=== PATIENT | female | born 1980 | race Caucasian/White ===

== ENCOUNTER 2017-08-08 08:28 | Outpatient (CLI) | payer MEDICAID ==
[2017-08-08 09:25] LABS: ADD MAN DIFF? NO
[2017-08-08 09:35] LABS: BASOPHILS % 0.2 % (0.0-2.0); EOSINOPHILS % 0.3 % (0.0-7.0); HEMATOCRIT 38.1 % (37.0-47.0); HEMOGLOBIN 12.6 g/dl (12.0-16.0); LYMPHOCYTES # 0.8 10^3/ul (0.8-2.9); LYMPHOCYTES % 6.9 % (15.0-51.0); MEAN CORPUSCULAR HEMOGLOBIN 29.6 pg (29.0-33.0); MEAN CORPUSCULAR HGB CONC 33.1 g/dl (32.0-37.0); MEAN CORPUSCULAR VOLUME 89.6 fl (82.0-101.0); MEAN PLATELET VOLUME 10.4 fl (7.4-10.4); MONOCYTE # 0.3 10^3/ul (0.3-0.9); MONOCYTES % 2.7 % (0.0-11.0); NEUTROPHIL # 10.3 10^3/ul (1.6-7.5); NEUTROPHILS % 89.4 % (39.0-77.0); PLATELET COUNT 236 10^3/UL (140-415); RED BLOOD COUNT 4.25 10^6/ul (4.20-5.40)
[2017-08-08 09:35] LABS: WHITE BLOOD COUNT 11.6 10^3/ul (4.8-10.8)
[2017-08-08 09:42] LABS: ADD UMIC YES; UR ASCORBIC ACID NEGATIVE (NEGATIVE); UR BACTERIA FEW /HPF (NONE SEEN); UR BILIRUBIN (Dip) NEGATIVE (NEGATIVE); UR BLOOD (Dip) NEGATIVE (NEGATIVE); UR CLARITY SLIGHTLY CLOUDY (CLEAR); UR COLOR YELLOW (YELLOW); UR GLUCOSE (Dip) NEGATIVE (NEGATIVE); UR KETONES (Dip) NEGATIVE (NEGATIVE); UR LEUKOCYTE ESTERASE (Dip) TRACE Leu/ul (NEGATIVE); UR MUCUS FEW /HPF (NONE SEEN); UR NITRITE (Dip) NEGATIVE (NEGATIVE); UR RBC 1 /HPF (0-5); UR SPECIFIC GRAVITY (Dip) 1.024 (1.003-1.030); UR SQUAMOUS EPITHELIAL CELL FEW /HPF (FEW); UR TOTAL PROTEIN (Dip) 2+ mg/dl (NEGATIVE); UR UROBILINOGEN (Dip) NEGATIVE (NEGATIVE); UR WBC 3 /HPF (0-5)
[2017-08-08 09:58] LABS: ALANINE AMINOTRANSFERASE 23 IU/L (13-69); ALBUMIN 3.6 g/dl (3.3-4.9); ALBUMIN/GLOBULIN RATIO 1.12; ALKALINE PHOSPHATASE 140 IU/L (42-121); AMYLASE 139 U/L (11-123); ANION GAP 11 (8-16); ASPARTATE AMINO TRANSFERASE 17 IU/L (15-46); BILIRUBIN,INDIRECT 0.2 mg/dl (0-1.1); BILIRUBIN,TOTAL 0.2 mg/dl (0.2-1.3); BLOOD UREA NITROGEN 10 mg/dl (7-20); CALCIUM 8.5 mg/dl (8.4-10.2); CARBON DIOXIDE 26 mmol/L (21-31); CHLORIDE 105 mmol/L (97-110); CREATININE 0.57 mg/dl (0.44-1.00); GLUCOSE 91 mg/dl (70-220); LIPASE 210 U/L (23-300); POTASSIUM 4.3 mmol/L (3.5-5.1); TOTAL PROTEIN 6.8 g/dl (6.1-8.1)
[2017-08-08 10:12] LABS: SODIUM 138 mmol/L (135-144)
== END 2017-08-08 10:50 | disposition home or self-care (01) ==
LOC: OBT 08:28 → L-D 08:32 → OBT 10:50
DX: O99.613 Diseases of the digestive system complicating pregnancy, third trimester (principal); K80.20 Calculus of gallbladder without cholecystitis without obstruction; O09.513 Supervision of elderly primigravida, third trimester; Z3A.33 33 weeks gestation of pregnancy
CPT/HCPCS: 36415; 76705; 76818; 80053; 81001; 82150; 83690; 85025

== ENCOUNTER 2017-09-23 12:08 | Inpatient (IN) | payer MEDICAID ==
[2017-09-23] MEDS ORDERED: CARBOPROST 250 MCG INJ IM ×3 (12:30→22:00)
[2017-09-23] MEDS ORDERED: BUTORPHANOL 2 MG INJ IV (12:30)
[2017-09-23] MEDS ORDERED: METHYLERGONOVINE 0.2 MG INJ IM ×3 (12:30→22:00)
[2017-09-23] MEDS ORDERED: MISOPROSTOL 200 MCG TAB PR ×3 (12:30→22:00)
[2017-09-23] MEDS ORDERED: LIDOCAINE 1% (MPF) 30 ML INJ INJ (12:30)
[2017-09-23] MEDS ORDERED: OXYTOCIN 30 UNITS/LR 500 ML IV ×5 (12:30→22:00)
[2017-09-23] MEDS: LACTATED RINGER'S 1,000 ML IV (13:06)
[2017-09-23 13:09] LABS: ADD MAN DIFF? NO
[2017-09-23 13:12] LABS: WHITE BLOOD COUNT 9.2 10^3/ul (4.8-10.8)
[2017-09-23 13:12] LABS: BASOPHILS % 0.1 % (0.0-2.0); EOSINOPHILS % 0.3 % (0.0-7.0); HEMATOCRIT 38.7 % (37.0-47.0); HEMOGLOBIN 13.1 g/dl (12.0-16.0); LYMPHOCYTES # 1.9 10^3/ul (0.8-2.9); LYMPHOCYTES % 20.2 % (15.0-51.0); MEAN CORPUSCULAR HEMOGLOBIN 29.4 pg (29.0-33.0); MEAN CORPUSCULAR HGB CONC 33.9 g/dl (32.0-37.0); MEAN PLATELET VOLUME 10.8 fl (7.4-10.4); MONOCYTE # 0.4 10^3/ul (0.3-0.9); MONOCYTES % 4.8 % (0.0-11.0); NEUTROPHIL # 6.8 10^3/ul (1.6-7.5); NEUTROPHILS % 74.3 % (39.0-77.0); PLATELET COUNT 235 10^3/UL (140-415); RED BLOOD COUNT 4.45 10^6/ul (4.20-5.40); RED CELL DISTRIBUTION WIDTH 13.9 % (11.5-14.5)
[2017-09-23] MEDS: AMPICILLIN 2 GM/NS (PMX) 100 ML IVPB (13:22)
[2017-09-23 13:32] LABS: INR 0.85; PROTIME 11.7 Sec (11.9-14.9); PT RATIO 0.9
[2017-09-23] MEDS ORDERED: CEFAZOLIN 2 GM/50 ML (PMX) 50 ML IV (15:00)
[2017-09-23] MEDS ORDERED: AMPICILLIN 1 GM/NS (PMX) 50 ML IVPB (17:00)
[2017-09-23] MEDS ORDERED: morphine SULFATE/PF (10 MG/10 ML) INJ (18:00)
[2017-09-23] MEDS ORDERED: OXYTOCIN 10 UNIT INJ (18:00)
[2017-09-23] MEDS ORDERED: PHENYLephrine (100 MCG/ML) 5ML SYG (18:00)
[2017-09-23] MEDS ORDERED: ONDANSETRON 4 MG INJ (18:00)
[2017-09-23] MEDS ORDERED: PHENYLephrine 10 MG INJ (18:34)
[2017-09-23 19:21] LABS: RAPID PLASMA REAGIN NONREACTIVE (NR)
[2017-09-23] MEDS ORDERED: morphine 2 MG INJ IV (19:30)
[2017-09-23] MEDS ORDERED: ONDANSETRON 4 MG INJ IV (19:30)
[2017-09-23] MEDS ORDERED: DIPHENHYDRAMINE 50 MG INJ IV (19:30)
[2017-09-23] MEDS ORDERED: NALOXONE (0.4 MG/ML) INJ IV (19:30)
[2017-09-23] MEDS: OXYTOCIN 30 UNITS/LR 500 ML IV (20:11)
[2017-09-23] MEDS ORDERED: WITCH HAZEL/GLYCERIN PAD PR (22:00)
[2017-09-23] MEDS ORDERED: SENNA/DOCUSATE NA (8.6MG/50MG) TAB PO (22:00)
[2017-09-23] MEDS ORDERED: LANOLIN 7 GM TUBE TOP (22:00)
[2017-09-23] MEDS ORDERED: ZOLPIDEM 5 MG TAB PO (22:00)
[2017-09-24] MEDS: LACTATED RINGER'S 1,000 ML IV ×3 (00:47→16:00)
[2017-09-24] MEDS: IBUPROFEN 600 MG TAB PO ×5 (06:00→23:59)
[2017-09-24] MEDS: SENNA/DOCUSATE NA (8.6MG/50MG) TAB PO ×2 (08:30→22:10)
[2017-09-24 10:10] LABS: ADD MAN DIFF? NO
[2017-09-24 10:15] LABS: WHITE BLOOD COUNT 9.1 10^3/ul (4.8-10.8)
[2017-09-24 10:15] LABS: BASOPHILS % 0.1 % (0.0-2.0); EOSINOPHILS % 0.1 % (0.0-7.0); HEMATOCRIT 32.3 % (37.0-47.0); HEMOGLOBIN 10.7 g/dl (12.0-16.0); LYMPHOCYTES # 1.5 10^3/ul (0.8-2.9); LYMPHOCYTES % 16.9 % (15.0-51.0); MEAN CORPUSCULAR HEMOGLOBIN 29.2 pg (29.0-33.0); MEAN CORPUSCULAR HGB CONC 33.1 g/dl (32.0-37.0); MEAN CORPUSCULAR VOLUME 88.3 fl (82.0-101.0); MEAN PLATELET VOLUME 11.5 fl (7.4-10.4); MONOCYTE # 0.4 10^3/ul (0.3-0.9); MONOCYTES % 4.4 % (0.0-11.0); NEUTROPHIL # 7.1 10^3/ul (1.6-7.5); NEUTROPHILS % 78.2 % (39.0-77.0); PLATELET COUNT 197 10^3/UL (140-415); RED BLOOD COUNT 3.66 10^6/ul (4.20-5.40); RED CELL DISTRIBUTION WIDTH 14.2 % (11.5-14.5)
[2017-09-24] MEDS: KETOROLAC 30 MG INJ IV (14:37)
[2017-09-25] MEDS: IBUPROFEN 600 MG TAB PO ×4 (06:10→23:39)
[2017-09-25] MEDS: SENNA/DOCUSATE NA (8.6MG/50MG) TAB PO ×2 (08:46→22:13)
[2017-09-25] MEDS: DIPHTH/TET/ACEL PERTUSS (ADULT) 0.5 ML VIAL IM* (09:00)
[2017-09-25] MEDS: OXYCODONE/ASPIRIN (4.88/325) TAB PO (16:26)
[2017-09-26] MEDS: IBUPROFEN 600 MG TAB PO ×2 (06:05→11:29)
[2017-09-26] MEDS: INFLUENZA VIRUS VACCINE 0.5 ML (DISPENSING) IM* (08:52)
[2017-09-26] MEDS: SENNA/DOCUSATE NA (8.6MG/50MG) TAB PO (09:00)
== END 2017-09-26 13:05 | disposition home or self-care (01) | DRG 766 ==
LOC: L-D 12:08 → PP1 22:06
PROVIDERS: Obstetrics & Gynecology
PROC: 10D00Z1 Extraction of Products of Conception, Low, Open Approach (ICD-10-PCS; principal; 2017-09-23 18:15)
DX: O32.1XX0 Maternal care for breech presentation, not applicable or unspecified (principal); Z37.0 Single live birth; Z3A.39 39 weeks gestation of pregnancy
CPT/HCPCS: 76815; 85025; 85610; 85730; 86592; 86885; 86900; 86901; 94760; 99464